=== PATIENT | female | born 1990 | race Caucasian/White ===

== ENCOUNTER 2021-05-19 13:53 | Inpatient (IN) | payer MEDICAID, SELFPAY ==
[~2021-05-19] VITALS: Ht 162.6 cm; Wt 90.7 kg
[2021-05-21] MEDS ORDERED: NALBUPHINE HCL 10 MG/ML AMP IVP PRN (02:00)
[2021-05-21] MEDS ORDERED: TERBUTALINE SULFATE 1 MG/ML VIAL SUBCUT PRN (02:00)
[2021-05-21] MEDS ORDERED: OXYTOCIN/0.9 % SODIUM CHLORIDE 1,000 ML IV SCH (02:00)
[2021-05-21] MEDS: LR 1,000 ML IV SCH ×2 (02:30→08:56)
[2021-05-21 03:08] LABS: BASOPHILS % (AUTO) 0.2 % (0.0-2.0); EOSINOPHILS # (AUTO) 0.2 K/uL (0.0-0.4); EOSINOPHILS % (AUTO) 1.4 % (0.0-4.0); HEMATOCRIT 37.7 % (36-48); HEMOGLOBIN 12.4 g/dL (12.0-16.0); LYMPHOCYTES # (AUTO) 1.9 K/uL (1.0-5.5); LYMPHOCYTES % (AUTO) 13.6 % (20.5-51.5); MEAN CORPUSCULAR HEMOGLOBIN 27 pg (27-31); MEAN CORPUSCULAR HGB CONC 33 % (32-36); MEAN CORPUSCULAR VOLUME 83 fL (79.0-98.0); MONOCYTES # (AUTO) 0.9 K/uL (0.0-1.0); MONOCYTES % (AUTO) 6.6 % (1.7-9.3); NEUTROPHILS # (AUTO) 10.9 K/uL (1.8-7.7); NEUTROPHILS % (AUTO) 78.2 % (40.0-70.0); PLATELET COUNT (AUTO) 217 K/uL (130-430); RED BLOOD CELL COUNT(AUTO) 4.53 MIL/uL (4.2-6.2); RED CELL DISTRIBUTION WIDTH 14.7 % (9.0-15.0); WHITE BLOOD COUNT (AUTO) 13.9 K/uL (4.8-10.8)
[2021-05-21] MEDS ORDERED: LANOLIN 7 GM OINT. TP PRN (14:00)
[2021-05-21] MEDS ORDERED: HYDROcodone/ACETAMIN 5-325 MG TAB (NORCO/ VICODIN) PO PRN (14:00)
[2021-05-21] MEDS ORDERED: DERMOPLAST SPRAY TP PRN (14:00)
[2021-05-21] MEDS ORDERED: OXYTOCIN/0.9 % SODIUM CHLORIDE 1,000 ML IV ONE (14:00)
[2021-05-21] MEDS ORDERED: OXYCODONE/ACETAMINOPHEN 5-325 TABLET PO PRN ×2 (14:00)
[2021-05-21] MEDS ORDERED: WITCH HAZEL LEAF 1 MED.PAD MED.PAD TP PRN (15:45)
[2021-05-21] MEDS: IBUPROFEN 600 MG TABLET PO SCH ×2 (17:54→23:56)
[2021-05-22] MEDS: IBUPROFEN 600 MG TABLET PO SCH ×3 (06:24→18:13)
[2021-05-22 07:10] LABS: HEMATOCRIT 34.2 % (36-48); HEMOGLOBIN 11.2 g/dL (12.0-16.0)
[2021-05-22] MEDS ORDERED: DOCUSATE SODIUM 100 MG CAPSULE PO SCH (09:00)
[2021-05-22] MEDS ORDERED: LIGHT MINERAL OIL 10 ML VIAL MC ONE (14:12)
[2021-05-22] MEDS ORDERED: LIDOCAINE PF 1% 30ML(POUR BTL) INJ ONE (14:12)
[2021-05-23] MEDS: IBUPROFEN 600 MG TABLET PO SCH ×3 (00:11→12:13)
[2021-05-23] MEDS ORDERED: DIPH-TET-PERTUS Vaccine 0.5 ML VIAL (ADACEL) I.M. ONE (15:30)
[2021-05-23] MEDS ORDERED: FLU VACC QS2021-22(6MOS UP)/PF 0.5 ML/SYR SYRINGE I.M. ONE (15:30)
== END 2021-05-23 16:10 | disposition home or self-care (01) | DRG 560 ==
LOC: EDBD 05-21 00:15 → SPU 05-21 00:15
PROVIDERS: ADMIT Obstetrics & Gynecology; ATTEND Obstetrics & Gynecology
PROC: 10E0XZZ Delivery of Products of Conception, External Approach (ICD-10-PCS; principal; 2021-05-21)
PROC: 0KQM0ZZ Repair Perineum Muscle, Open Approach (ICD-10-PCS; 2021-05-21)
PROC: 3E033VJ Introduction of Other Hormone into Peripheral Vein, Percutaneous Approach (ICD-10-PCS; 2021-05-21)
DX: O48.0 Post-term pregnancy (principal); Z37.0 Single live birth; O24.420 Gestational diabetes mellitus in childbirth, diet controlled; O70.1 Second degree perineal laceration during delivery; Z20.822 Contact with and (suspected) exposure to COVID-19; Z3A.40 40 weeks gestation of pregnancy
CPT/HCPCS: 36415; 82947; 85018; 85025; 86592; 86886; 86900; 86901; 90715; J2001; J2300; J2590